=== PATIENT | male | born 1950 | race Caucasian/White ===

== ENCOUNTER 2021-04-05 05:55 | Day surgery (SDC) | payer MEDICARE, OTHER ==
[2021-04-05] MEDS ORDERED: Lactated Ringers 1,000 ML IV SCH (06:30)
[2021-04-05] MEDS ORDERED: Lactated Ringers 1,000 ML IV ONE ×2 (06:56→08:25)
[2021-04-05] MEDS ORDERED: DIPRIVAN 200 MG/20 ML IV ONE (08:11)
[2021-04-05 09:30] VITALS: O2SAT 98
[2021-04-05 09:38] VITALS: BP 140/78; PULSE 78
--- NOTE | 2021-04-05 12:07 | OP ---
SURGERY DATE/TIME: 04/05/2021 0800 PREOPERATIVE DIAGNOSIS: Positive Cologuard test. POSTOPERATIVE DIAGNOSES: 1) Mild sigmoid diverticulosis. 2) A 1.5 cm polyp in the sigmoid colon. 3) A 1 cm polyp in the transverse colon. PROCEDURE: Colonoscopy with hot snare polypectomy x2. SURGEON: Dr. Drummond. ANESTHESIA: MAC. Medications given by anesthesia department. HISTORY: The patient is a 70 year-old white male patient presenting now for his first colonoscopy having been positive for Cologuard test. The patient was described the risks of the procedure including the risk of perforation, phlebitis, untoward reaction to medication, bleeding and missed lesions. The patient verbalized his understanding and desired to have the procedure performed. DESCRIPTION OF PROCEDURE: The patient was given the medications by the anesthesia department. He had continuous pulse oximetry, ECG monitoring, intermittent blood pressure monitoring and tidal CO2 monitoring during the examination. He was placed in the left lateral decubitus position. A digital rectal examination was performed and revealed normal anal sphincter tone, no masses and normal prostate. The flexible Olympus pediatric colonoscope was used to intubate the rectum. A view of the colon was developed sequentially to the cecum. In the sigmoid colon there was noted to be a 1.5 cm pedunculated polyp this was removed using hot biopsy snare and was retrieved for pathologic evaluation. There was also noted to be a 1 cm polyp in the transverse colon that was also likewise removed using hot polypectomy snare retrieved for pathologic evaluation. Upon insertion and withdrawal, including a retroflex view in the rectum, there was noted to be mild segment of sigmoid diverticulosis otherwise no other mucosal lesions were encountered. The scope was removed from the patient who tolerated the procedure well and was sent back to OP recovery in good condition. The prep was noted to be fair to good.
== END 2021-04-05 09:45 | disposition home or self-care (01) ==
LOC: SDC 05:55
PROVIDERS: ATTEND Family Medicine
DX: K57.30 Diverticulosis of large intestine without perforation or abscess without bleeding (principal); R19.5 Other fecal abnormalities; D12.5 Benign neoplasm of sigmoid colon
CPT/HCPCS: J2704